=== PATIENT | female | born 1940 | race Caucasian/White ===

== ENCOUNTER → 2019-12-28 | Outpatient (CLI) | payer OTHER ==
[~2019-12-28] MED LIST: ACYCLOVIR 200200 MG PO; ALEVE220 MG PO; AMLODIPINE BESY10 MG PO; ASPIRIN EC81 M1 PO; AUGMENTIN 875875 MG; COZAAR100 MG PO; FISH OIL + D31 EACH PO; GLUCOSAMINE CH1 EAC7 PO; HYDROCHLOROTHIA25 M2 PO; HYDROCODON-ACE1 EAC7; HYDROCODON-ACE1 EAC7 PO; IBUPROFEN 600600 M1 PO; K-DUR 20 MEQ T20 MEQ; LOPRESSOR PO; LOPRESSOR100 MG PO; MULTI VITAMIN1 EACH PO; PRAVACHOL 20 MG20 M1 PO; PRAVACHOL PO; PROTONIX40 M2; RANITIDINE HCL300 M1 PO; TOPROL XL100 MG PO; ZANTAC 150MG T150 M1 PO
== END ==
LOC: SJCVC 12:48
PROVIDERS: ATTEND Internal Medicine Cardiovascular Disease
DX: I44.0 Atrioventricular block, first degree (principal); I10 Essential (primary) hypertension; E78.5 Hyperlipidemia, unspecified; E78.00 Pure hypercholesterolemia, unspecified; R53.83 Other fatigue; I87.2 Venous insufficiency (chronic) (peripheral); K21.9 Gastro-esophageal reflux disease without esophagitis; Z82.49 Family history of ischemic heart disease and other diseases of the circulatory system; Z79.899 Other long term (current) drug therapy; Z79.82 Long term (current) use of aspirin

== ENCOUNTER → 2020-01-29 | Outpatient (CLI) | payer OTHER | LOC: SJCVCIMAG 07:42 | PROVIDERS: ATTEND Internal Medicine Cardiovascular Disease | DX: I34.0 Nonrheumatic mitral (valve) insufficiency (principal); I10 Essential (primary) hypertension; E78.5 Hyperlipidemia, unspecified ==

== ENCOUNTER → 2020-10-11 | Outpatient (CLI) | payer OTHER | LOC: SJCVC 13:08 | PROVIDERS: ATTEND Internal Medicine Cardiovascular Disease | DX: R94.31 Abnormal electrocardiogram [ECG] [EKG] (principal); I10 Essential (primary) hypertension; E78.00 Pure hypercholesterolemia, unspecified; I87.2 Venous insufficiency (chronic) (peripheral); Z72.89 Other problems related to lifestyle; Z79.82 Long term (current) use of aspirin; Z79.899 Other long term (current) drug therapy; Z88.0 Allergy status to penicillin; Z88.8 Allergy status to other drugs, medicaments and biological substances ==